=== PATIENT | female | born 1980 | race Caucasian/White ===

== ENCOUNTER → 2025-07-04 18:37 | Outpatient (REF) | payer OTHER, SELFPAY | LOC: WDC 18:37 | PROVIDERS: ATTENDING PHYSICIAN Nurse Practitioner Family | DX: Z13.31 Encounter for screening for depression (principal) | CPT/HCPCS: 77063; 77067 ==

== ENCOUNTER → 2025-07-19 10:28 | Outpatient (REF) | payer OTHER, SELFPAY | LOC: WDC 10:28 | PROVIDERS: ATTENDING PHYSICIAN Nurse Practitioner Family | DX: R92.8 Other abnormal and inconclusive findings on diagnostic imaging of breast (principal) | CPT/HCPCS: 76642 ==